=== PATIENT | male | born 1980 ===

== ENCOUNTER 2017-06-25 10:25 | Emergency (ER) | payer BC ==
[2017-06-25 10:50] VITALS: BP 131/85
--- NOTE | 2017-06-25 11:29 | UC ---
Respiratory Complaint HPI - HPI Summary HPI Summary: pt c/o burning in chest, bronchospastic cough that worsens when lies down. - History of Current Complaint Chief Complaint: UCRespiratory Stated Complaint: COUGH CONGESTION Time Seen by Provider: 06/25/17 11:08 Hx Obtained From: Patient Onset/Duration: Gradual Onset, Lasting Days, Still Present, Worse Since - onset Timing: Intermittent Episodes Severity Initially: Mild Severity Currently: Mild Character: Cough: Nonproductive Aggravating Factors: Allergens, Exertion, Deep Breaths, Recumbent Position Alleviating Factors: Nothing Associated Signs And Symptoms: Positive: Wheezing, URI - Risk Factors Pulmonary Embolism Risk Factors: Negative Cardiac Risk Factors: Negative Pseudomonas Risk Factors: Negative Tuberculosis Risk Factors: Negative - Allergies/Home Medications Allergies/Adverse Reactions: Allergies Allergy/AdvReac Type Severity Reaction Status Date / Time No Known Allergies Allergy Verified 06/25/17 10:42 PMH/Surg Hx/FS Hx/Imm Hx Previously Healthy: Yes - Surgical History Surgical History: Yes Surgery Procedure, Year, and Place: WISDOM TEETH EXTRACTIONS. NASAL FX REPAIR - Family History Known Family History: Positive: Cardiac Disease, Respiratory Disease - Social History Occupation: Employed Full-time Lives: With Family Alcohol Use: Rare Substance Use Type: None Smoking Status (MU): Light Every Day Tobacco Smoker Type: Cigarettes Amount Used/How Often: 8 CIGS A DAY PLUS CHEW Have You Smoked in the Last Year: Yes Household Exposure Type: Cigarettes - Immunization History Most Recent Influenza Vaccination: NEVER Review of Systems Constitutional: Chills Skin: Negative Eyes: Negative ENT: Negative Respiratory: Cough Cardiovascular: Negative Gastrointestinal: Negative Genitourinary: Negative Motor: Negative, Decreased ROM Musculoskeletal: Negative Neurological: Negative Psychological: Negative Is Patient Immunocompromised?: No All Other Systems Reviewed And Are Negative: Yes Physical Exam Triage Information Reviewed: Yes Appearance: Well-Appearing Vital Signs: Initial Vital Signs Temp 98.8 F 06/25/17 10:43 Pulse 94 06/25/17 10:43 Resp 20 06/25/17 10:43 BP 131/85 06/25/17 10:43 Pulse Ox 97 06/25/17 10:43 Vital Signs Reviewed: Yes Eye Exam: Normal ENT Exam: Normal Dental Exam: Normal Neck exam: Normal Respiratory Exam: Other Respiratory: Positive: Decreased breath sounds - bilateral bases Cardiovascular Exam: Normal Musculoskeletal Exam: Normal Neurological Exam: Normal Psychological Exam: Normal Skin Exam: Normal UC Diagnostic Evaluation - Laboratory O2 Sat by Pulse Oximetry: 97 Respiratory Course/Dx - Differential Dx/Diagnosis Differential Diagnosis/HQI/PQRI: Bronchitis, Influenza, Other - viral syndrome Provider Diagnoses: bronchitis Discharge - Discharge Plan Condition: Stable Disposition: HOME Prescriptions: Azithromycin TAB* [Zithromax TAB (Z-RANDALL) 250 mg #6 tabs] 2 tab PO .TODAY, THEN 1 DAILY #1 randall Benzonatate CAP* [Tessalon 100 MG CAP*] 100 mg PO Q8H PRN #30 cap PRN Reason: Cough predniSONE TAB* [Deltasone TAB*] 20 mg PO DAILY #4 tab Patient Education Materials: Acute Bronchitis (ED) Forms: *Work Release Referrals: Non Staff,Doctor [Primary Care Provider] - If Needed
== END 2017-06-25 11:39 | disposition home or self-care (01) ==
LOC: UCCORT 10:25
DX: J40 Bronchitis, not specified as acute or chronic (principal); F17.210 Nicotine dependence, cigarettes, uncomplicated; F17.220 Nicotine dependence, chewing tobacco, uncomplicated
CPT/HCPCS: 99202; G0463

== ENCOUNTER 2019-05-12 08:22 | Emergency (ER) | payer BC ==
[2019-05-12 08:39] VITALS: BP 151/91
--- NOTE | 2019-05-12 09:26 | UC ---
Lower Extremity/Ankle HPI - HPI Summary HPI Summary: 38-year-old male comes in with chief complaint of right foot pain and rash ever since he stepped on a piece of glass in March 2019. Patient was barefoot and he did pull a small piece of glass out of his right foot. Since that time he said pain on and off and there is been a rash that is developed over the area. He's tried some Neosporin without any improvement and overall things got worse. No fevers no chills. Feels well otherwise. Pain can be worse with certain range of motion or weightbearing. - History of Current Complaint Chief Complaint: UCSkin Stated Complaint: RIGHT FOOT COMPLAINT Time Seen by Provider: 05/12/19 09:24 Pain Intensity: 0 - Allergies/Home Medications Allergies/Adverse Reactions: Allergies Allergy/AdvReac Type Severity Reaction Status Date / Time No Known Allergies Allergy Verified 05/12/19 08:39 PMH/Surg Hx/FS Hx/Imm Hx Previously Healthy: Yes - Surgical History Surgical History: Yes Surgery Procedure, Year, and Place: WISDOM TEETH EXTRACTIONS. NASAL FX REPAIR - Family History Known Family History: Positive: Cardiac Disease, Respiratory Disease - Social History Alcohol Use: Occasionally Substance Use Type: None Smoking Status (MU): Light Every Day Tobacco Smoker Type: Cigarettes Amount Used/How Often: 8 CIGS A DAY Have You Smoked in the Last Year: Yes Household Exposure Type: Cigarettes - Immunization History Most Recent Influenza Vaccination: NEVER Review of Systems All Other Systems Reviewed And Are Negative: Yes Constitutional: Positive: Negative Skin: Positive: Other - SEE HPI Eyes: Positive: Negative ENT: Positive: Negative Respiratory: Positive: Negative Cardiovascular: Positive: Negative Gastrointestinal: Positive: Negative Motor: Positive: Negative Neurovascular: Positive: Negative Musculoskeletal: Positive: Negative Neurological: Positive: Negative Psychological: Positive: Negative Is Patient Immunocompromised?: No Physical Exam Triage Information Reviewed: Yes Appearance: Well-Appearing, No Pain Distress, Well-Nourished Vital Signs: Initial Vital Signs Temp 98.6 F 05/12/19 08:35 Pulse 76 05/12/19 08:35 Resp 16 05/12/19 08:35 BP 151/91 05/12/19 08:35 Pulse Ox 100 05/12/19 08:35 Vital Signs Reviewed: Yes Eye Exam: Normal Eyes: Positive: Conjunctiva Clear Neck: Positive: Supple Respiratory: Positive: No respiratory distress Musculoskeletal: Positive: Strength Intact, ROM Intact, Other: - On the plantar aspect of the right foot there is a 2 and half centimeter diameter area of flaking skin. There is some callus formation also. Nontender on my exam no erythema. No fluctuance no obvious foreign body. Toes and foot and ankle have full range of motion full-strength normal capillary refill no sensation deficits. Neurological: Positive: Alert Psychological: Positive: Age Appropriate Behavior Skin: Positive: Other - On the plantar aspect of the right foot there is a 2 and half centimeter diameter area of flaking skin. There is some callus formation also. Nontender on my exam no erythema. No fluctuance no obvious foreign body. Lower Extremity Course/Dx - Course Course Of Treatment: Philosophy Lecturer: Magdy Jewell ([id number]) Hand Presser: JOCELYN (JOCELYN) Report Date: 05/12/2019 08:59:00 Report Status: Final Start of Report Content Patient Name: FRANCHESKA NOEL Medical Record#: [id number] Ordering Physician: Anatoly Coombs MD Acct.#: [id number] : 1980 Age : 38 Sex: M [facility]: [facility] Exam Date: 05/12/19858 ADM Status : REG ER Order Information: FOOT RIGHT 2 S Accession Number: [id number] CPT: 35396 INDICATION: Right foot injury. TECHNIQUE: 2 views of the right foot were obtained. FINDINGS: There is mild soft tissue swelling along the plantar forefoot no radiopaque foreign bodies identified. The bone mineralization is within normal limits. No fracture is identified. Anatomic alignment is maintained. There is moderate first MTP osteoarthropathy. IMPRESSION: 1. SOFT TISSUE SWELLING ABOUT THE PLANTAR FOREFOOT WITH NO RADIOPAQUE FOREIGN BODY. 2. MODERATE FIRST MTP OSTEOARTHROPATHY <Electronically signed by Magdy Jewell MD in [place]> 05/12/19915 Dictated By: Magdy Jewell MD Dictated Date/Time: 05/12/19912 Transcribed Date/ Time: 05/12/19912 Copy to: CC:[facility]; No Primary Care Phys, NOPCP ; Anatoly Coombs MD Imaging - [facility] Imaging - [place] [facility] [place] Imaging - [facility] [id number] [place] [id number] ph ([phone]) ph ([phone]) ph ([phone]) ==== End of Report Content I discussed the x-rays with the patient and his family. Was no obvious location of the foreign body on exam or by x-ray. With the flaking skin is a possibility of subsequent fungal infection and therefore I recommended over-the- counter antifungal treatment. We will also treat with an antibiotic orally in case of bacterial infection. I recommended follow-up with podiatry. - Differential Dx/Diagnosis Provider Diagnosis: Foreign body in foot, right Discharge ED - Sign-Out/Discharge Documenting (check all that apply): Patient Departure All imaging exams completed and their final reports reviewed: Yes - Discharge Plan Condition: Stable Disposition: HOME Prescriptions: Cephalexin CAP* [Keflex CAP*] 500 mg PO TID #30 cap Patient Education Materials: Soft Tissue Foreign Body (ED) Forms: *Work Release Referrals: Jaime Avila DPM [Doctor of Podiatric Medicine] - Easton Barnhart DPM [Doctor of Podiatric Medicine] - Additional Instructions: FOLLOW UP WITH PODIATRY. TRY AN OVER THE COUNTER ANTI FUNGAL SUCH TOLNAFTATE (TINACTIN). GET REEVALUATED SOONER IF NOT IMPROVING OR YOUR CONDITION WORSENS OR ANY QUESTIONS OR CONCERNS - Billing Disposition and Condition Condition: STABLE Disposition: Home
== END 2019-05-12 09:47 | disposition home or self-care (01) ==
LOC: UCCORT 08:22
DX: M79.5 Residual foreign body in soft tissue (principal); F17.210 Nicotine dependence, cigarettes, uncomplicated; M19.071 Primary osteoarthritis, right ankle and foot
CPT/HCPCS: 99212; G0463